=== PATIENT | female | born 2000 | race Caucasian/White ===

== ENCOUNTER 2024-06-22 13:10 | Outpatient (AMB) | payer OTHER, SELFPAY ==
--- OUTSIDE RECORDS SUMMARY | 2024-06-22 13:13 | XMS_ITS | Continuity of Care Document ---
Author Organization [facility] Address [address] [place] [phone] Phone Care Team Providers Care Radio Installer Name Role Phone Ivanna Garcia MD Unavailable Unavailable Allergies, Adverse Reactions, Alerts Substance Reaction Status Criticality No Known allergies Medications Medication Instructions Dosage Effective Dates (start - stop) Status Comments amitriptyline 50 mg tablet - Act brianda Procedures Procedure Date Consult Level 5 Visual Field Examination(s) Advance Directives Directive Yes / No Effective Date File Name No Information Encounters Encounter Description Practice Location Reason(s) For Visit Diagnoses Date Provider Providers Copied on Encounter [facility], [address] [place] [address], [id number], tel:[phone] Contact [facility] [place] No Information 6 Radha Goncalves. [address], [address], . tel: [phone] Referring Provider: Jenn Krause, [address] [place] [address], [address]. tel:[phone] Consult Level 5 [facility], [address] [place] [address], [id number], tel:[phone] [facility] [place] Concussion without loss of consciousness, initial encounterPeriodic headache syndromes in chld/adlt, not intractablePeriod ic headache syndromes in chld/adlt, not intractableUnspec ified injury of head, initial encounterConcussi on without loss of consciousness, initial encounter 6 Radha Goncalves. [address] [facility], [address], [place], [address], [place]. tel: [phone] Referring Provider: Jenn Krause, [facility] [place], [place], [facility]. tel:[phone] Family History Family Member Type Diagnosis Age At Onset No Information Payers Payer name Insurance type Covered republican ID Authoriza tipatricia(s) [facility] [id number] Social History Type Description Quantity Date Captured Comments Sex Female Smoking Status No Information Chief Complaint And Reason For Visit No Information Plan Of Treatment Date Type Action Status No Information History Of Present Illness Encounter Date Complaint History Of Prese nt Illness No Information Instructions Date Instruction Additional Infor mation No Information Assessments Type Assessment Date No Information
--- NOTE | 2024-06-22 13:15 | A.OFFVIS_ITS ---
Vital Signs 06/22/24 13:16 Height 5 ft 6 in Weight 156 lb BMI 25.2 BP 124/77 Blood Pressure Location Rt brachial Position Sitting Pulse 104 H Pulse Source Doppler Pulse Oximetry (%) 100 Oxygen Delivery Method Room Air Intake Visit Reasons: cough Allergies keflex Adverse Reaction (Severe, Uncoded 06/22/24 13:20) Hives HPI HPI cough: Details: 23-year-old nonsmoker, with prior history of COVID-19 around 2019 and subsequent development of recurrent yearly common colds with residual post viral cough lasting several months after each episode cough. Patient denies prior personal or family history of lung disease. She does have mild environmental allergies. She is employed with no exposure to industrial dusts. Patient does complain of heartburn symptoms with episodes of post viral cough. Last episode in April of 2024, resolved before this visit. When episodes parenchyma she does require oral glucocorticoids and cough suppressants for resolution. [facility] Social History (Updated 06/22/24 @ 13:20 by Caity Ochoa Marita) Patient Tobacco Use Status: Never used Tobacco Review of Systems Const Denies daytime sleepiness, Denies excessive sweating, Denies fatigue, Denies fever(s), Denies lethargy, Denies malaise, Denies night sweats, Denies snoring and Denies weight loss Eyes Denies blurry vision and Denies itchy eyes ENT Denies nasal congestion, Denies post nasal drip, Denies sinus pain, Denies sinus pressure and Denies other ( Thrush) Card Denies chest pain, Denies pedal edema, Denies dyspnea, Denies orthopnea and Denies paroxysmal nocturnal dyspnea Resp Reports cough, Denies hemoptysis, Denies excessive phlegm production, Denies dyspnea, Denies snoring and Denies wheezing GI Denies abdominal pain and Denies heartburn Musc Denies myalgias, Denies arthralgias and Denies joint swelling Skin/Breast Denies rash Neuro Denies memory loss and Denies seizure-like activity Psych Denies abnormal sleep pattern, Denies anxiety and Denies memory loss Endo Denies excessive sweating, Denies fatigue and Denies heat intolerance Stoney/Lymph Denies easy bruising Aller/Immun Denies itchy eyes, Denies seasonal rhinorrhea and Denies wheezing Physical Exam Vital Signs: Last Vital Signs Pulse 104 H 06/22/24 13:16 BP 124/77 06/22/24 13:16 Pulse Ox 100 06/22/24 13:16 Oxygen Delivery Method Room Air 06/22/24 13:16 BMI result Body Mass Index 25.2 Const General: no acute distress and alert Nutritional Appearance: not obese Orientation/consciousness: Other orientation findings ( oriented) HEENT Head: Yes atraumatic Eyes General: appearance normal, both eyes and all related structures Sclerae: sclerae normal EOM: EOMs intact bilaterally Neck Neck: Yes supple Lymphatic: no lymphadenopathy noted Resp Effort & Inspection: normal respiratory effort and no use of accessory muscles Auscultation: clear to auscultation bilaterally Cardio Rate: regular rate Rhythm: regular rhythm Heart sounds: no gallops, no murmurs and no rubs Skin General skin exam: other ( warm) Extrem General: No clubbing, No cyanosis and No edema Assessment & Plan Assessment & Plan (1) Recurrent cough: Code(s): R05.8 - Other specified cough Category: Medical Plan: Unclear etiology, may have GERD are reactive airway disease this component. Will obtain full PFT. Currently asymptomatic. (2) Environmental allergies: Code(s): Z91.09 - Other allergy status, other than to drugs and biological substances Category: Medical Plan: Will obtain CBC with differential, RAST panel, and IgE level for further evaluation. Orders: Orders Complete Blood Count Auto Diff Today Z91.09 - Other allergy status, other than to drugs and biological substances PFT pulmonary function test Today R05.8 - Other specified cough Resp Allergy Profile Region I Today Z91.09 - Other allergy status, other than to drugs and biological substances Coding Level of Care Code New Pt Level 4 (29094) Diagnoses Recurrent cough R05.8 Environmental allergies Z91.09
[2024-06-22 13:16] VITALS: BP 124/77; PULSE 104; O2SAT 100; BMI 25.2
== END 2024-06-22 13:37 | disposition home or self-care (01) ==
PROVIDERS: Visit Provider Internal Medicine Pulmonary Disease
DX: R05.8 Other specified cough (principal); Z91.09 Other allergy status, other than to drugs and biological substances
CPT/HCPCS: 99204

== ENCOUNTER 2024-07-31 13:26 | Outpatient (REF) | payer OTHER, SELFPAY ==
--- OUTSIDE RECORDS SUMMARY | 2024-07-31 14:43 | XMS_ITS ---
Author Name [facility] Organization Unknown Problems Problem Status Onset Date Problem Type Date of Resolution Source Pre-procedure lab exam active EncounterDiagnosisAct [facility] Encounter for IUD removal and reinsertion active EncounterDiagnosisAct [facility] Encounter for insertion of intrauterine contraceptive device (IUD) active EncounterDiagnosisAct [facility]
--- OUTSIDE RECORDS SUMMARY | 2024-07-31 14:43 | XMS_ITS | Clinical Summary ---
Author Organization [facility] Address [address] [place] [address] Care Team Providers Care Head Of Marketing Name Role Phone Vanesa Dixon MD Primary Care Provider [phone] Domenic Mitchell Unavailable Unavailabl e Vanesa Dixon MD Unavailable Immunizations Name Administration Dates Next Due DTaP 11/17/2004, 1,05/28/2000,1999,01/15/2000 HPV9 (Gardasil 9) 12/22/2013,06/27/2013,12/17/19 13 Hep B - 08/25/2000,05/28/2000,1999 Hib - 02/07/2001, 0,03/22/2000,1999 IPV 11/17/2004, 1,03/22/2000,1999 MMR 11/19/2003,02/07/2001 Meningoccal, Meningococal MC V4 unspecified 03/13/2016,12/08/2010 PCV-13 02/07/2001, 1,07/21/2000,1999 Tdap 12/06/2009 Varicella 12/03/2006,11/17/2000 Social History Tobacco Use Types Packs/Day Years Used Date Smoking Tobacco: Never Assessed Comments Unknown Sex and Gender Information Value Date Recorded Sex Assigned at Not on file Legal Sex Female 4:35 PM EDT Gender Identity Not on file Sexual Orientation Not on file Plan of Treatment Health Maintenance Due Date Last Done Comments Hepatitis C Screening 1999 Chlamydia 2015 Pap Smear 2015 DTaP/Tdap/Td (7 - Td or Tdap) 12/07/2019 12/06/2009, 11/17/2004, 05/09/2001, Additional history exists COVID-19 Vaccine ( season) 2024 Influenza (#1) 2024 Zoster (Shingrix) (1 of 2) 11/15/2049 12/03/2006, Hep B Completed 08/25/2000, 06/1999, 1999 Hib Completed 02/07/2001, 06/1999, 03/22/2000, Additional history exists Pneumococcal Completed 02/07/2001, 09/2000, 07/21/2000, Additional history exists HPV Vaccine Completed 12/22/2013, 05/30, 12/16/2012 Meningococcal ACWY Completed 03/13/2016, 12/08/2010 Hep A Aged Out No longer eligi ble based on patient's age to complete this topic Care Teams Head Of Marketing Relationship Specialty Start Date End Date Vanesa Dixon MD [address] [place] [address] PCP - General 02/01/23 Vanesa Dixon MD [address] [place] [address] PCP - Backup PCP Pediatrics 07/29/23 Domenic Mitchell 02/01/23
--- OUTSIDE RECORDS SUMMARY | 2024-07-31 14:43 | XMS_ITS | Clinical Summary ---
Author Organization [address] Address [address] [place] [phone] Phone Care Team Providers Care Dough Brake Machine Operator Name Role Phone Domenic Mitchell MD Primary Care Provider Allergies No known active allergies Medications miSOPROStoL (CYTOTEC) 200 MCG tabletIndicatio ns:Encounter for IUD insertion Place one tab under tongue night before procedure and one tab under tongue morning of procedure. 2 tablet 2 Active Active Problems No known active problems Family History Medical History Relation Name Comments High cholesterol Father Heart attack Maternal Grandfather No Known Problems Mother Heart attack Paternal Grandfather Stroke Paternal Grandfather No Known Problems Sister 1 No Known Problems Sister 2 Relation Name Status Comments Father Maternal Grandfather Mother Paternal Grandfather Sister 1 Sister 2 Social History Tobacco Use Types Packs/Day Years Used Date Smoking Tobacco: Never Smokeless Tobacco: Never Alcohol Use Standard Drinks/Week Comments Yes 0 (1 standard drink = 0.6 oz pur e alcohol) Socially PHQ-2 Answer Date Recorded PHQ-2 Score 0 06/30/2019 Comments No Sex and Gender Information Value Date Recorded Sex Assigned at Not on file Legal Sex Female 9:44 AM EST Gender Identity Not on file Sexual Orientation Not on file Occupation Industry Job Start Date Job End Date Student Not on file Not on file Not on file Last Filed Vital Signs Vital Sign Reading Time Taken Comments Blood Pressure 120/70 06/30/2022 11:21 AM EST Pulse 90 01/05/2020 11:04 AM EDT Temperature 36.3 ??C (97.4 ??F) 06/24/2020 9:26 AM ES T Respiratory Rate 16 02/14/2013 7:38 PM EDT Oxygen Saturation 100% 01/05/2020 11:04 AM EDT Inhaled Oxygen Concentration - - Weight 68 kg (150 lb) 06/30/2022 11:21 AM EST Height 167.6 cm (5' 6 ) 06/25/2022 9:26 AM EST Body Mass Index 24.21 06/25/2022 9:26 AM EST Plan of Treatment Health Maintenance Due Date Last Done Comments MMR Vaccines (1 of 1 - Standard series) 11/15/2000 HIV screening 11/15/2012 Varicella Vaccines (1 of 2 - 13+ 2-dose series) 11/15/2012 HPV vaccine series (1 - 3-do se series) 11/15/2014 Chlamydia screening 11/15/2016 Hepatitis C screening 11/15/2017 Hepatitis B vaccine series ( 1 of 3 - 19+ 3-dose series) 11/15/2018 DTaP/TDaP Vaccines (2 - Td o r Tdap) 10/02/2022 09/04/2022 Influenza vaccine 01/27/2024 Covid-19 vaccine series ( - season) 2024 06/30/2021, 10/01/2020, 09/03/2020 Cervical cancer screening 06/25/20252021, 06/25/2021 Tetanus adult (Td q 10,TDAP once) 09/04/2032 09/04/2022 RSV Discussion (1 - 1-dose 7 5+ series) 11/15/2074 HIB Vaccines Aged Out No longer eligi ble based on patient's age to complete this topic Hepatitis A Vaccines Aged Out No long er eligible based on patient's age to complete this topic IPV Vaccines Aged Out No longer eligi ble based on patient's age to complete this topic Meningococcal Vaccine Aged Out No lou patty eligible based on patient's age to complete this topic Pneumococcal Vaccine Aged Out No long er eligible based on patient's age to complete this topic Rotavirus Vaccines Aged Out No longer eligible based on patient's age to complete this topic Procedures Procedure Name Priority Date/Time Associated Diagnosis Comments CYTOLOGY PURCHASING MANAGER/SALES CASES (YH) Routine 06/25/2022 7:11 PM EST from Last 3 Months or Most Recently Relevant to Health Maintenance Results * Cytology manager web cases () (06/25/2022 7:11 PM EST) Cytology Public Relations Analyst Cases ?CYTOLOGY REPORT ? Procedures/Addenda Attached Patient: CONY JOLLY ?MR #: [id number] ?Submitted by: Jonathon Ahmadi M.D. FINAL DIAGNOSIS SUREPATH PAP SMEAR: ? Primary Diagnosis: ? NEGATIVE FOR INTRAEPITHELIAL LESION OR MALIGNANCY. ? Additional Findings: ENDOCERVICAL/TRANS FORMATION ZONE COMPONENT PRESENT. ? CELLULAR FEATURES CONSISTENT WITH INFLAMMATION RELATED CHANGES. ? HIGH RISK HPV CO-TESTING HAS BEEN PERFORMED AND THE RESULT IS NEGATIVE. Specimen Adequacy: THIS SPECIMEN IS SATISFACTORY FOR EVALUATION. NOTE: ??Cervical/vaginal cytology is a screening tool for cervical carcinoma and its precursor lesions with an inherent false negative rate. ??It is an inaccurate test for detection of endometrial lesions and should not be used to evaluate suspected endometrial abnormalities. ??([facility], 2001) ?? 06/30/2022 07:02 ?* Report Electronically Signed Out * ? This electronic signature indicates that the pathologist has personally reviewed the available gross and/or microscopic material and has based the diagnosis on that evaluation. ? Specimen(s) Received: SUREPATH PAP SMEAR Clinical History and Impression: {Not Available} ?? Procedures/Addenda MOLECULAR DX: HR HPV SCREENING ?Pathologist: ? [facility] ? Status: ??Signed Out ? Ordered: ? 06/25/2022 ?Reported: ? 06/27/2022 17:55 ? Interpretation Specimen: SUREPATH PAP SMEAR BELOW CUTOFF FOR HIGH RISK HPV HPV types 16, 18, 31, 33, 35, 39, 45, 51, 52, 56, 58, 59, 66, and 68 DNA were either considered NEGATIVE, undetectable,or below the pre-set threshold. Note: Cut off ranges for HR HPV values have been determined by [facility] and found to be POSITIVE for OTHER HR HPV types and HPV type [address] Value is = 40.0 and for HPV type [address] value is = 40.5. ??Cut off ranges for HR HPV values have been determined by [facility] and found to be NEGATIVE for OTHER HR HPV types and HPV type [address] value is > 40.[address] value is > 40.5 for HPV type 16. This test was performed at [facility] Department of Pathology, [address] [place] [address], CLIA# [id number] using the [facility] dago 4800 HPV Test System and is only approved by the Food and Drug Administration (FDA) for use oncervicalspecimen s collected in Cytyc Preservcyt Solution (ThinPrep). When using ThinPrep liquid based samples for non-cervical specimens, SurePath liquid based samples, or formalin fixed paraffin embedded tissue, the performance characteristics have been determined by [facility]. Although testing on samples that are not cervical in origin, and/or in any other medium besides ThinPrep, has not been cleared or approved by the FDA, the FDA has determined that such clearance or approval is not necessary. ? MOLECULAR DX: CHLAMYDIA AND GONORRHEA ?Pathologist: ? [facility] ? Status: ??Signed Out ? Ordered: ? 06/25/2022 ?Reported: ? 06/26/2022 13:13 ? Interpretation Specimen: SUREPATH PAP SMEAR NO CHLAMYDIA TRACHOMATIS OR NEISSERIA GONORRHOEAE DNA DETECTED. Note: A negative result does not preclude Chlamydia trachomatis or Neisseria gonorrhea infection because results depend on adequate specimen collection and sufficient DNA detected.Cut off ranges for CTGC values are determined by the BD to be POSITIVE IF THE CTQx or GCQx Max RFU = 125 and NEGATIVE if the CTQx or GCQx Max RFU < 125. This CTGC assay was performed at [facility] Department of Pathology [address] [facility], [address] [place] [address] CLIA# [id number] using the BD Viper ProbeTec assay. ??This system is FDA approved for liquid based cytology products, BD swabs, and urine collection kits. The Viper has a 5-6% false positive rate. ? [facility] Cervical Tracking Result Non-Tracking [facility] High Risk HPV Screening Non-Tracking [facility] 06/25/2022 7:11 PM EST Comment:SUREPATH PAP SMEAR+ HPV/CTGC us Jonathon Ahmadi MD PATHOLOGY/CYTOLOGY ORDERABLE S Final Result Performing Organization Address City/State/[facility] Co de Phone Number [facility] Department of Pathology [address] [place] [address] [phone] [place] [phone] from Last 3 Months or Most Recently Relevant to Health Maintenance Insurance ([place]) [address] Care Teams Dough Brake Machine Operator Relationship Specialty Start Date End Date Domenic Mitchell MD [address] [place] [phone] PCP - General Pediatrics 05/08/19
--- NOTE | 2024-07-31 14:44 | PFT_ITS ---
Flows: FEV1: 99 % of predicted at 3.47 L FVC: 96 % of predicted at 3.91 L FEV1/FVC: 89 % Bronchodilator response: Absent Volumes: Total lung capacity: 103 % of predicted at 5.56 L Residual volume: 130 % of predicted at 1.55 L Slow vital capacity: 97 % of predicted at 4.01 L Expiratory reserve volume: 78 % of predicted at 1.09 L Diffusion capacity: Normal Impression: No obstructive or restrictive ventilatory defect. No bronchodilator response. Increased residual volume suggests air trapping. MTDD
== END 2024-07-31 13:27 | disposition home or self-care (01) ==
LOC: HO.RESP 13:26
PROVIDERS: Visit Provider Internal Medicine Pulmonary Disease
DX: R05.8 Other specified cough (principal)
CPT/HCPCS: 94010; 94640; 94727; 94729

== ENCOUNTER → 2024-07-31 14:44 | Outpatient (BNV) | payer OTHER, SELFPAY | PROVIDERS: Visit Provider Internal Medicine Pulmonary Disease | DX: R05.8 Other specified cough (principal) | CPT/HCPCS: 94060; 94727; 94729 ==

== ENCOUNTER 2024-08-01 10:20 | Outpatient (REF) | payer OTHER, SELFPAY ==
--- OUTSIDE RECORDS SUMMARY | 2024-08-01 11:59 | XMS_ITS | Clinical Summary ---
Author Organization [facility] Address [address] [place] [address] Care Team Providers Care Steam Plant Records Clerk Name Role Phone Vanesa Dixon MD Primary Care Provider [phone] Domenic Mitchell Unavailable Unavailabl e Vanesa Dixon MD Unavailable [phone] Immunizations Name Administration Dates Next Due DTaP [...] age to complete this topic Care Teams Steam Plant Records Clerk Relationship Specialty Start Date End Date Vanesa Dixon MD [address] [place] [address] PCP - General 02/01/23 Vanesa Dixon MD [address] [place] [address] PCP - Backup PCP Pediatrics 07/29/23 Domenic Mitchell 02/01/23
--- OUTSIDE RECORDS SUMMARY | 2024-08-01 11:59 | XMS_ITS | Clinical Summary ---
Author Organization [address] Address [address] [place] [phone] Phone Care Team Providers Care Workers Compensation Claims Examiner Name Role Phone Domenic Mitchell MD Primary [...] Name Priority Date/Time Associated Diagnosis Comments CYTOLOGY HOP GROWER CASES (YH) Routine 06/25/2022 7:11 PM EST from Last 3 Months or Most Recently Relevant to Health Maintenance Results * Cytology funeral planner cases () (06/25/2022 7:11 PM EST) Cytology Keyboard Teacher Cases ?CYTOLOGY REPORT ? Procedures/Addenda Attached Patient: CONY JOLLY ?MR #: [id number] ?Submitted by: Jonathon Ahmadi M.D. FINAL DIAGNOSIS [...] used to evaluate suspected endometrial abnormalities. ??(The [place] System, 2001) ?? 06/30/2022 07:02 ?* Report [...] type 16. This test was performed at [facility] Department of Pathology, [address] [place] [address], CLIA# [id number] using the Lucia dago 4800 HPV Test System and is only approved by the Food and Drug Administration (FDA) for use oncervicalspecimen s collected in Cytyc Preservcyt Solution (ThinPrep). When using ThinPrep liquid based samples for non-cervical specimens, SurePath liquid based samples, or formalin fixed paraffin embedded tissue, the performance characteristics have been determined by [facility]. Although testing on samples that are not cervical in origin, and/or in any other medium besides ThinPrep, has not been cleared or approved by the FDA, the FDA has determined that such clearance or approval is not necessary. ? MOLECULAR DX: CHLAMYDIA AND GONORRHEA ?Pathologist: ? [facility] ? Status: ??Signed Out ? [...] 125. This CTGC assay was performed at [facility] Department of Pathology [address] [facility], [address] [place] [address] CLIA# [id number] using the BD Viper ProbeTec assay. ??This system is FDA approved for liquid based cytology products, BD swabs, and urine collection kits. The Viper has a 5-6% false positive rate. ? [facility] Cervical Tracking Result Non-Tracking [facility] High Risk HPV Screening Non-Tracking [facility] 06/25/2022 7:11 PM EST Comment:SUREPATH PAP SMEAR+ HPV/CTGC us Jonathon Ahmadi MD PATHOLOGY/CYTOLOGY ORDERABLE S Final Result Performing Organization Address City/State/[facility] Co de Phone Number [facility] Department of Pathology [address] [place] [address] [phone] [place] [phone] from Last 3 Months or Most Recently Relevant to Health Maintenance Insurance ([place]) [address] Care Teams Workers Compensation Claims Examiner Relationship Specialty Start Date End Date Domenic Mitchell MD [address] [place] [phone] PCP - General Pediatrics 05/08/19
[2024-08-02 22:53] LABS: IgA 146 mg/dL (47-310); IgG 1759 mg/dL (600-1640); IgM 75 mg/dL (50-300)
[2024-08-04 15:28] LABS: Immunoglobulin G Subclass 1 616 mg/dL (382-929); Immunoglobulin G Subclass 2 522 mg/dL (241-700); Immunoglobulin G Subclass 3 43 mg/dL (22-178); Immunoglobulin G Subclass 4 417.8 mg/dL (4-86); Immunoglobulin G Total 1563 mg/dL (600-1640)
== END 2024-08-01 10:21 | disposition home or self-care (01) ==
LOC: HO.LAB 10:20
PROVIDERS: Visit Provider Internal Medicine Pulmonary Disease
DX: R05.8 Other specified cough (principal)
CPT/HCPCS: 36415; 82784

== ENCOUNTER 2024-08-01 10:20 | Outpatient (AMB) | payer OTHER, SELFPAY ==
[2024-08-01 10:30] VITALS: BP 112/78; PULSE 98; O2SAT 100; BMI 23.7
--- NOTE | 2024-08-01 10:30 | A.OFFVIS_ITS ---
Vital Signs 08/01/24 10:30 Height 5 ft 6 in Weight 147 lb BMI 23.7 BP 112/78 Blood Pressure Location Rt brachial Position Sitting Pulse 98 Pulse Source Doppler Pulse Oximetry (%) 100 Oxygen Delivery Method Room Air Intake Visit Reasons: Cough Allergies keflex Adverse Reaction (Severe, Uncoded 06/22/24 13:20) Hives HPI HPI Cough: Details: 23-year-old nonsmoker, with prior history of COVID-19 around 2019 and subsequent development of recurrent yearly common colds with residual post viral cough lasting several months after each episode. Patient denies prior personal or family history of lung disease. She does have mild environmental allergies. She is employed with no exposure to industrial dusts. Patient does complain of heartburn symptoms with episodes of post viral cough. Last episode in April of 2024, resolved before initial visit. With cough episodes she does require oral glucocorticoids and cough suppressants for resolution. After the last office visit patient completed pulmonary function test that was essentially normal and allergy panel that showed only mild allergies to [place] trees. She denies recurrence of her symptoms. [facility] Social History (Updated 06/22/24 @ 13:20 by Caity Ochoa Marita) Patient Tobacco Use Status: Never used Tobacco Review of Systems Const Denies daytime sleepiness, Denies excessive sweating, Denies fatigue, Denies fever(s), Denies lethargy, Denies malaise, Denies night sweats, Denies snoring and Denies weight loss Eyes Denies blurry vision and Denies itchy eyes ENT Denies nasal congestion, Denies post nasal drip, Denies sinus pain, Denies sinus pressure and Denies other ( Thrush) Card Denies chest pain, Denies pedal edema, Denies dyspnea, Denies orthopnea and Denies paroxysmal nocturnal dyspnea Resp Denies cough, Denies hemoptysis, Denies excessive phlegm production, Denies dyspnea, Denies snoring and Denies wheezing GI Denies abdominal pain and Denies heartburn Musc Denies myalgias, Denies arthralgias and Denies joint swelling Skin/Breast Denies rash Neuro Denies memory loss and Denies seizure-like activity Psych Denies abnormal sleep pattern, Denies anxiety and Denies memory loss Endo Denies excessive sweating, Denies fatigue and Denies heat intolerance Stoney/Lymph Denies easy bruising Aller/Immun Denies itchy eyes, Denies seasonal rhinorrhea and Denies wheezing Physical Exam Vital Signs: Last Vital Signs Pulse 98 08/01/24 10:30 BP 112/78 08/01/24 10:30 Pulse Ox 100 08/01/24 10:30 Oxygen Delivery Method Room Air 08/01/24 10:30 BMI result Body Mass Index 23.7 Const General: no acute distress and alert Nutritional Appearance: not obese Orientation/consciousness: Other orientation findings ( oriented) HEENT Head: Yes atraumatic Eyes General: appearance normal, both eyes and all related structures Sclerae: sclerae normal EOM: EOMs intact bilaterally Neck Neck: Yes supple Lymphatic: no lymphadenopathy noted Resp Effort & Inspection: normal respiratory effort and no use of accessory muscles Auscultation: clear to auscultation bilaterally Cardio Rate: regular rate Rhythm: regular rhythm Heart sounds: no gallops, no murmurs and no rubs Skin General skin exam: other ( warm) Extrem General: No clubbing, No cyanosis and No edema Assessment & Plan Assessment & Plan (1) Recurrent cough: Code(s): R05.8 - Other specified cough Category: Medical Plan: No recent exacerbation. Will check immunoglobulin levels. (2) Environmental allergies: Code(s): Z91.09 - Other allergy status, other than to drugs and biological substances Category: Medical Plan: Results of RAST testing reviewed, underlying only mild allergies to [place] trees. Continue to monitor clinically. Orders: Orders Immunoglobulin G Subclasses Today R05.8 - Other specified cough Immunoglobulins,IgG IgA IgM Today R05.8 - Other specified cough Coding Level of Care Code Est Pt Level 4 (21352) Diagnoses Recurrent cough R05.8 Environmental allergies Z91.09
--- OUTSIDE RECORDS SUMMARY | 2024-08-01 11:05 | XMS_ITS | Clinical Summary ---
Author Organization [facility] Address [address] [place] [address] Care Team Providers Care Risk Consulting Treasury Director Name Role Phone Vanesa Dixon MD Primary Care Provider [phone] Domenic Mitchell Unavailable Unavailabl e Vanesa Dixon MD Unavailable [phone] Immunizations Name Administration Dates Next Due DTaP [...] age to complete this topic Care Teams Risk Consulting Treasury Director Relationship Specialty Start Date End Date Vanesa Dixon MD [address] [place] [address] PCP - General 02/01/23 Vanesa Dixon MD [address] [place] [address] PCP - Backup PCP Pediatrics 07/29/23 Domenic Mitchell 02/01/23
--- OUTSIDE RECORDS SUMMARY | 2024-08-01 11:05 | XMS_ITS | Clinical Summary ---
Author Organization [address] Address [address] [place] [phone] Phone Care Team Providers Care Electric Tripper Machine Operator Name Role Phone Domenic Mitchell [...] Name Priority Date/Time Associated Diagnosis Comments CYTOLOGY X RAY TECH CASES (YH) Routine 06/25/2022 7:11 PM EST from Last 3 Months or Most Recently Relevant to Health Maintenance Results * Cytology poll clerk cases () (06/25/2022 7:11 PM EST) Cytology Seafood Specialist Cases ?CYTOLOGY REPORT ? Procedures/Addenda Attached Patient: CONY JOLYL ?MR #: [id number] ?Submitted by: Jonathon Ahmadi M.D. FINAL DIAGNOSIS [...] used to evaluate suspected endometrial abnormalities. ??(The [place] System, 2001) ?? 06/30/2022 07:02 ?* Report [...] type 16. This test was performed at [facility] Department of Pathology, [address] [place] [address], CLIA# [id number] using the Lucia dago 4800 HPV Test System and is only approved by the Food and Drug Administration (FDA) for use oncervicalspecimen s collected in Cytyc Preservcyt Solution (ThinPrep). When using ThinPrep liquid based samples for non-cervical specimens, SurePath liquid based samples, or formalin fixed paraffin embedded tissue, the performance characteristics have been determined by [facility]. Although testing on samples that are not cervical in origin, and/or in any other medium besides ThinPrep, has not been cleared or approved by the FDA, the FDA has determined that such clearance or approval is not necessary. ? MOLECULAR DX: CHLAMYDIA AND GONORRHEA ?Pathologist: ? [facility] ? Status: ??Signed Out ? [...] 125. This CTGC assay was performed at [facility] Department of Pathology [address] [facility], [address] [place] [address] CLIA# [id number] using the BD Viper ProbeTec assay. ??This system is FDA approved for liquid based cytology products, BD swabs, and urine collection kits. The Viper has a 5-6% false positive rate. ? [facility] Cervical Tracking Result Non-Tracking [facility] High Risk HPV Screening Non-Tracking [facility] 06/25/2022 7:11 PM EST Comment:SUREPATH PAP SMEAR+ HPV/CTGC us Jonathon Ahmadi MD PATHOLOGY/CYTOLOGY ORDERABLE S Final Result Performing Organization Address City/State/[facility] Co de Phone Number [facility] Department of Pathology [address] [place] [address] [phone] [place] [phone] from Last 3 Months or Most Recently Relevant to Health Maintenance Insurance ([place]) [address] Care Teams Electric Tripper Machine Operator Relationship Specialty Start Date End Date Domenic Mitchell MD [address] [place] [phone] PCP - General Pediatrics 05/08/19
== END 2024-08-01 10:44 | disposition home or self-care (01) ==
PROVIDERS: Visit Provider Internal Medicine Pulmonary Disease
DX: R05.8 Other specified cough (principal); Z91.09 Other allergy status, other than to drugs and biological substances
CPT/HCPCS: 99214